=== PATIENT | female | born 1995 | race Caucasian/White ===

== ENCOUNTER 2016-10-06 23:54 | Emergency (ER) | payer BC ==
[~2016-10-06] VITALS: Ht 167.6 cm; Wt 55.0 kg
[~2016-10-06 23:54] MED LIST: MEDR4PAK3 PO; ZITH250T PO
[2016-10-06 23:57] VITALS: BP 110/66; PULSE 55; RESP 16; TEMP 97.8; O2SAT 99
[2016-10-07] MEDS ORDERED: ERYTHROMYCIN 0.5% OPTH OINT 3.5 GM TUBO RIGHT EYE ONE (00:15)
[2016-10-07] MEDS ORDERED: ERYTOIN10 RIGHT EYE (00:22)
--- NOTE | 2016-10-07 00:22 | PD ---
HPI Chief Complaint: Eye Problems/Injury Time Seen by Provider: 00:08 Travel History International Travel<30 days: Yes Contact w/Intl Traveler<30days: Yes Traveled to known affect area: No History of Present Illness HPI Patient is a 21-year-old female presented to emergency department for evaluation of right eye redness, tearing, crusting. Patient's symptoms started this morning upon awakening. She denies any pain with eye movement, photophobia , headaches. She further denies any foreign body sensation or visual disturbances. FORMERLY [facility], [facility] Past Medical History Medical History: Denies Significant Hx Social History Alcohol Use: No Tobacco Use: No Substance Use: No Allergies-Medications (Allergen,Severity, Reaction): Coded Allergies: No Known Allergies (Unverified , 10/06/16) Reported Meds & Prescriptions Reported Meds & Active Scripts Active Erythromycin Opth Oint 5 Mg/Gm Oint 1 Applic RIGHT EYE QID Zithromax Z-Mino (Azithromycin) 250 Mg Tab 250 Mg PO DIRECTED 500 MG (2 TABLETS) PO ON DAY 1, THEN 250 MG (1 TABLET) PO ON DAYS 2 TO 5. Medrol Dosepak (Methylprednisolone) 4 Mg Mino 4 Mg PO DIRECTED TAKE DIRECTED Review of Systems Except as stated in HPI: all other systems reviewed are Neg Eyes: Positive: Drainage, Redness, Tearing, No: Blurred Vision, Photophobia, Visual changes Physical Exam Narrative GENERAL: Well-nourished, well-developed patient. SKIN: Focused skin assessment warm/dry. HEAD: Normocephalic. EYES: No scleral icterus. Mild injection in right eye, pupils are equal, round , reactive bilaterally. EOMI. NECK: Supple, trachea midline. No JVD or lymphadenopathy. CARDIOVASCULAR: Regular rate and rhythm without murmurs, gallops, or rubs. RESPIRATORY: Breath sounds equal bilaterally. No accessory muscle use. GASTROINTESTINAL: Abdomen soft, non-tender, nondistended. MUSCULOSKELETAL: No cyanosis, or edema. BACK: Nontender without obvious deformity. No CVA tenderness. Data Data Last Documented VS Vital Signs Date Time Temp Pulse Resp B/P Pulse Ox O2 Delivery O2 Flow Rate FiO2 10/06/16 23:57 97.8 55 16 110/66 99 Room Air Orders Erythromycin 0.5% Opth Oint (Ilotycin 0. (10/07/16 00:15) [facility] Medical Decision Making Medical Screen Exam Complete: Yes Emergency Medical Condition: Yes Interpretation(s) Vital Signs Date Time Temp Pulse Resp B/P Pulse Ox O2 Delivery O2 Flow Rate FiO2 10/06/16 23:57 97.8 55 16 110/66 99 Room Air Differential Diagnosis Conjunctivitis versus iritis versus other Narrative Course Patient is a 21-year-old female presented to emergency for evaluation of right eye redness that started this morning. Physical examination is most consistent with conjunctivitis. She was encouraged to maintain strict hand washing procedure to avoid spread. She is advised on how to use medication. She is advised to return to emergency department or follow-up with ophthalmology for any new or worsening symptoms. Patient verbalized understanding of instructions. Patient is stable for discharge. Diagnosis Primary Impression: Conjunctivitis Qualified Code: H10.31 - Acute conjunctivitis of right eye, unspecified acute conjunctivitis type Referrals: Shank Archer Primary Care Physician Patient Instructions: Conjunctivitis (ED), General Instructions Additional Instructions: Follow up with your primary doctor Return to the Emergency Department for any new or worsening symptoms Maintain strict handwashing to avoid spread Med/Other Pt SpecificInfo: Prescription(s) given Scripts Erythromycin Opth Oint 5 Mg/Gm Oint1 Applic RIGHT EYE QID #1 TUBE Ref 0 Prov:Mya Ziegler 10/07/16 Disposition: 01 DISCHARGE HOME Condition: Stable Mya Ziegler Oct 07, 2016 00:22
== END 2016-10-07 01:39 | disposition home or self-care (01) ==
LOC: NEPD 23:54
DX: H10.31 Unspecified acute conjunctivitis, right eye (principal)
CPT/HCPCS: 99283